=== PATIENT | female | born 1955 | race Caucasian/White ===

== ENCOUNTER 2018-05-29 12:18 | Emergency (ER) | payer MEDICARE ==
[~2018-05-29] VITALS: Ht 154.9 cm; Wt 56.6 kg
[~2018-05-29 12:18] MED LIST: ALPR1TAB2 PO; ARIP5TAB13; ASPI-621 PO; BUPR150T73; ESCI20TA10; LEVO100T PO; LEVO250T8 PO; LEVO50CA2; METH5TAB4 PO
[2018-05-29 12:40] VITALS: BP 120/70
[2018-05-29] MEDS ORDERED: ONDANSETRON ODT 4 MG PO ONE (13:30)
[2018-05-29] MEDS ORDERED: HYDROmorphone 1 MG/ML, 1ML IM ONE (13:30)
[2018-05-29] MEDS ORDERED: KETOROLAC 30 MG/1 ML IM ONE (13:30)
[2018-05-29] MEDS ORDERED: KETOROLAC 30 MG/1 ML ONE (13:31)
[2018-05-29] MEDS ORDERED: HYDROmorphone 2 MG/ML, 1ML ONE (13:31)
[2018-05-29] MEDS ORDERED: ONDANSETRON ODT 4 MG ONE (13:31)
== END 2018-05-29 13:59 | disposition home or self-care (01) ==
LOC: ED 13:49
DX: M79.642 Pain in left hand (principal); M25.532 Pain in left wrist; E03.9 Hypothyroidism, unspecified; Z88.8 Allergy status to other drugs, medicaments and biological substances; Z90.710 Acquired absence of both cervix and uterus
CPT/HCPCS: 29125; 96372; 99284; J1170; J1885; Q0162